=== PATIENT | male | born 1970 | race African-American/Black ===

== ENCOUNTER 2019-03-24 13:46 | Outpatient (CLI) | payer BC ==
--- NOTE | 2019-03-24 15:20 | ULT ---
ULTRASOUND VENOUS MAPPING FOR DIALYSIS ACCESS: HISTORY: ESRD. Dialysis access evaluation. FINDINGS: RIGHT CEPHALIC VEIN: Proximal humerus 1.3 mm Mid humerus 0.7 mm Distal too small to visualize Elbow too small to visualize Proximal forearm too small to visualize Mid too small to visualize Distal too small to visualize RIGHT BASILIC VEIN: Proximal humerus 4.4 mm Mid humerus 1.8 mm Distal 2.2 mm Elbow 1.1 mm Proximal forearm 0.7 mm Mid 0.9 mm Distal 0.8 mm RIGHT: BRACHIAL ARTERY 4.2 mm RRADIAL ARTERY 2.4 mm ULNAR ARTERY 1.7 mm LEFT CEPHALIC VEIN: Proximal humerus not seen Mid humerus 0.7 mm Distal 0.6 mm Elbow 0.9 mm Proximal forearm 0.5 mm Mid 0.8 mm Distal 0.6 mm LEFT BASILIC VEIN: Proximal humerus 2.7 mm Mid humerus 2.2 mm Distal 1.2 mm Elbow 0.6 mm Proximal forearm 0.7 mm Mid 0.5 mm Distal not seen LEFT BRACHIAL ARTERY 3.5 mm RADIAL ARTERY 2.5 mm ULNAR ARTERY 1.8 mm POS: [facility]
== END 2019-03-24 13:47 | disposition home or self-care (01) ==
LOC: BICULT 13:46
PROVIDERS: ATTEND Internal Medicine Nephrology
DX: N18.5 Chronic kidney disease, stage 5 (principal)
CPT/HCPCS: 93970; G0365

== ENCOUNTER 2019-04-07 10:36 | Day surgery (SDC) | payer BC ==
[2019-04-06 09:47] VITALS: BMI 33.6
--- NOTE | 2019-04-07 08:03 | HP ---
HISTORY OF PRESENT ILLNESS: Ovi Malone is a 48-year-old black male, retired. 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 He is followed by Dr. Lee. He has hypertensive nephropathy as well as diabetes. He is on cholesterol medications. He has been seen by Dr. Lee. Ultrasound vein mapping obtained reveals occlusion of the right upper arm cephalic vein and superior left arm veins. Right arm cephalic vein is 1.3/0.7 mm and too small to visualize distally. Left arm reveals . Mid humerus 0.7, 0.6; elbow 0.9; proximal forearm 0.5 mm; basilic 2.7, 2.2, 1.2; . Plan is for a left arm fistula, possible graft. He does not want peritoneal dialysis. He has relatives who have been on dialysis. HABITS: Tobacco, rarely. Alcohol rarely. MEDICATIONS: 1. Hydralazine 25 mg t.i.d. 2. Amlodipine 2 mg a day. 3. Metoprolol 100 mg a day. 4. NovoLog 70/30, 15 to 30 units subcu b.i.d. 5. Propylthiouracil 50 mg a day. 6. Rosuvastatin 10 mg at bedtime. 7. Insulin as directed. 8. Vitamin D daily. PAST SURGICAL HISTORY: Open cholecystectomy. PAST MEDICAL HISTORY: Diabetes mellitus, insulin-dependent and hypertension. REVIEW OF SYSTEMS: Ten-point noncontributory. PHYSICAL EXAMINATION: VITAL SIGNS: Weight 218 pounds, height 69 inches, blood pressure 178/92, heart rate 76, temperature 98.5 degrees. HEAD, EYES, EARS, NOSE, AND THROAT: Unremarkable. LUNGS: Clear to auscultation. CARDIAC: Rhythm without murmur or gallop. ABDOMEN: Soft, nontender. Open cholecystectomy scar, right upper quadrant. No hernias evident. EXTREMITIES: Unremarkable. Palpable radial pulses. No visibly demonstrable veins in either arm. ASSESSMENT/PLAN: 1. Poor veins, right arm. Plan left arm fistula, possible graft. He understands risks and benefits and consents. Plan is under IV sedation regional versus general per anesthesia choice. 2. Diabetes mellitus. 3. Hypertension. 4. Elevated cholesterol. Job ID: [id number]
[2019-04-07 12:30] LABS: #Basophils 0.1 thou/uL (0.0-0.2); #Eosinphils 0.2 thou/uL (0.0-0.7); #Lymphocytes 2.3 thou/uL (1.20-3.40); #Monocytes 0.6 thou/uL (0.11-0.59); #Neutrophils 2.1 thou/uL (1.40-6.50); %Basophils 1.7 % (0.0-1.0); %Eosinophils 3.9 % (0.0-10.0); %Lymphocytes 42.9 % (21.0-51.0); %Monocytes 11.3 % (0.0-10.0); %Neutrophils 40.3 % (42.0-75.0); Hemoglobin 11.3 g/dL (14.0-18.0); Mean Corpuscular HGB CONC 32.9 g/dL (32.0-36.0); Mean Corpuscular Hemoglobin 27.2 pg (27.0-31.0); Mean Corpuscular Volume 82.6 fL (78.0-98.0); Mean Platelet Volume 9.8 fL (7.4-10.4); Platelet Count 287 thou/uL (130-400); RBC Distribution Width 11.4 % (11.5-14.5); Red Blood Cell (RBC) Count 4.17 mill/uL (4.70-6.10); White Blood Cell (WBC) Count 5.3 thou/uL (4.8-10.8)
[2019-04-07 12:46] LABS: Anion Gap 13 mmol/L (10-20); BUN (Urea Nitrogen) 45 mg/dL (8.9-20.6); Calc. Creatinine Clearance 23 mL/min (70-130); Calcium 8.8 mg/dL (7.8-10.44); Carbon Dioxide 20 mmol/L (22-29); Chloride 108 mmol/L (98-107); Estimated GFR-MDRD 13; Glucose 135 mg/dL (70-105); Potassium 4.9 mmol/L (3.5-5.1); Sodium 136 mmol/L (136-145)
[2019-04-07] MEDS ORDERED: Propofol 500 MG/50 ML VIAL ONE (13:02)
[2019-04-07] MEDS ORDERED: Fentanyl 100 MCG/2 ML VIAL ONE ×2 (13:02→13:52)
[2019-04-07] MEDS ORDERED: Midazolam HCl 2 mg/2 ml Vial ONE (13:51)
[2019-04-07] MEDS ORDERED: Dextrose 50% Abboject 50 ML SYRINGE ONE ×2 (13:53→16:12)
[2019-04-07] MEDS ORDERED: Lidocaine 2% PF 5 ML VIAL ONE (14:16)
[2019-04-07] MEDS ORDERED: Protamine Sulfate 50 MG/5 ML VIAL ONE (14:16)
[2019-04-07] MEDS ORDERED: Bupivacaine HCl 0.5%/Epinephrine 1:200,000/PF 30 ml Vial ONE (14:16)
[2019-04-07] MEDS ORDERED: Heparin 5,000 UNITS/ML VIAL ONE (14:16)
[2019-04-07] MEDS ORDERED: Ioversol 68 % 50 ML VIAL ONE (14:16)
--- NOTE | 2019-04-07 23:04 | OP ---
DATE OF PROCEDURE: 04/07/2019 PREOPERATIVE DIAGNOSIS: Chronic kidney disease, not yet started dialysis, pending dialysis access. POSTOPERATIVE DIAGNOSIS: Chronic kidney disease, not yet started dialysis, pending dialysis access. PROCEDURES PERFORMED: Left arm primary AV fistula Marian type 4 mm coronary artery dilator. Good quality radial artery, excellent caliber cephalic vein. ANESTHESIA: Regional, TIVA. ESTIMATED BLOOD LOSS: 20 mL. Note, the patient presented after taking an oatmeal with light corn despite n.p.o. instructions and surgery delayed until 2:30 to 2:45 p.m. DESCRIPTION OF PROCEDURE: The patient was taken to the operating room, where under regional anesthesia, left upper extremity was prepared with ChloraPrep and draped in routine fashion. Incision was made between the radial artery and cephalic vein longitudinally, carried down to skin and subcutaneous tissue. Radial artery and cephalic vein dissected free dividing branches of the cephalic vein between clips and 4-0 silk ties and dividing the hand side of the cephalic vein with 4-0 silk ties and divided. The patient given 6000 units of heparin intravenously. Vein spatulated and interrogated with coronary dilators, passing coronary dilators from 2 mm to 4 mm coronary dilator, unobstructed out the outflow. Radial artery dissected free and controlled proximally with vascular clamps and a longitudinal arteriotomy was made sharply, elongated with Braga scissors for 2.5 cm anastomosis between the side radial artery and the cephalic vein. Good hemostasis noted after completing the anastomosis with 6-0 Prolene. Vascular clamps were released. Good Doppler signal in the outflow. A counter incision made over the larger branch point, which was ligated with 4-0 silk ties. All incisions closed by approximating subcutaneous tissue with 3-0 Monocryl, skin with subdermal 4-[address] [place] glue applied. Job ID: [id number]
--- NOTE | 2019-04-08 09:20 | EKG ---
Test Reason : PREOP Blood Pressure : / mmHG Vent. Rate : 072 BPM Atrial Rate : 072 BPM P-R Int : 158 ms QRS Dur : 090 ms QT Int : 378 ms P-R-T Axes : 056 017 038 degrees QTc Int : 413 ms Normal sinus rhythm Normal ECG No previous ECGs available Confirmed by FRANCISCA POLLOCK, DR. Yin ([id number]) on 04/08/2019 9:20:48 AM Referred By: WILLIS Confirmed By:DR. Humphrey ESPINOSA MD
== END 2019-04-07 17:25 | disposition home or self-care (01) ==
LOC: SDC 10:36
PROVIDERS: ATTEND Specialist
PROC: 031C0ZF Bypass Left Radial Artery to Lower Arm Vein, Open Approach (ICD-10-PCS; principal; 2019-04-07)
DX: I12.0 Hypertensive chronic kidney disease with stage 5 chronic kidney disease or end stage renal disease (principal); E11.22 Type 2 diabetes mellitus with diabetic chronic kidney disease; N18.6 End stage renal disease; F17.200 Nicotine dependence, unspecified, uncomplicated; E78.5 Hyperlipidemia, unspecified; E11.21 Type 2 diabetes mellitus with diabetic nephropathy; E78.00 Pure hypercholesterolemia, unspecified; E66.9 Obesity, unspecified; Z68.33 Body mass index [BMI] 33.0-33.9, adult; Z79.4 Long term (current) use of insulin; Z79.899 Other long term (current) drug therapy
CPT/HCPCS: 36416; 80048; 85025; 93005; 93010; J0670; J0690; J1644; J2001; J2250; J2704; J2720; J3010; Q9967

== ENCOUNTER 2019-05-30 12:18 | Outpatient (CLI) | payer BC ==
--- NOTE | 2019-05-30 12:58 | RAD ---
EXAM: Chest PA and lateral: HISTORY: Chronic kidney disease. Eval for TB. COMPARISON: 06/05/2006 FINDINGS: Heart: Normal cardiac silhouette Aorta: Unremarkable Pulmonary vessels: Normal Costophrenic angles: Blunting of the right costophrenic angle. Lungs: Atelectasis, aspiration or pneumonia in the right lung base. Calcified granuloma in the right upper lobe. Pneumothorax: No pneumothorax Osseous structures: No osseous abnormalities IMPRESSION: : Parenchymal and pleural changes in the right lung base. Continued surveillance to ensure resolution .
== END 2019-05-30 12:19 | disposition home or self-care (01) ==
LOC: BICRAD 12:18
PROVIDERS: ATTEND Internal Medicine Nephrology
DX: N18.5 Chronic kidney disease, stage 5 (principal)
CPT/HCPCS: 71046

== ENCOUNTER 2019-07-26 12:51 | Day surgery (SDC) | payer BC ==
[2019-07-25 12:21] VITALS: BMI 29.5
--- NOTE | 2019-07-25 15:16 | HP ---
HISTORY OF PRESENT ILLNESS: Oiv Malone is a 48-year-old male patient followup after left Marian fistula on 04/07/2019. He is using this for dialysis. He is not having hemodialysis catheter and has never had. He dialyzes at [facility] in [place] on Wednesday, , and Wednesday. He has insisted in peritoneal dialysis. He has talked to the dialysis center about that, but has not visited with the dialysis nurse. Plan is for laparoscopic peritoneal dialysis catheter as an outpatient. He will see the peritoneal dialysis nurse prior and follow up with her 3 to 7 days postoperatively for dressing changes and begin instructions. MEDICATIONS: 1. Amlodipine. 2. Chlorthalidone. 3. Glucophage. 4. Metoprolol. 5. Hydralazine. He has stopped his insulin since starting dialysis. PAST MEDICAL HISTORY: Diabetes mellitus, hyperlipidemia, hypothyroidism, and end-stage renal disease on maintenance dialysis. PAST SURGICAL HISTORY: Left AVF on 04/07/2019, Marian fistula. ALLERGIES: NONE. SOCIAL HISTORY: Tobacco, none. Alcohol, none. PHYSICAL EXAMINATION: VITAL SIGNS: Weight 211 pounds, 69 inches. Blood pressure 185/103, pulse 106, temperature 96.6 degrees. HEAD, EARS, EYES, NOSE AND THROAT: Unremarkable. LUNGS: Clear to auscultation. CARDIAC: Regular rate and rhythm without murmur or gallop. ABDOMEN: Soft and nontender. No umbilical hernia. No groin hernias. EXTREMITIES: Good thrill and bruit in his left arm fistula, Marian. Good hand function. ASSESSMENT AND PLAN: End-stage renal disease. PLAN: Laparoscopic PD catheter as outpatient risks, benefits, and consents. Job ID: [id number]
[2019-07-26 14:17] LABS: Hemoglobin 12.3 g/dL (14.0-18.0); Mean Corpuscular HGB CONC 32.6 g/dL (32.0-36.0); Mean Corpuscular Hemoglobin 28.2 pg (27.0-31.0); Mean Corpuscular Volume 86.6 fL (78.0-98.0); Mean Platelet Volume 8.9 fL (7.4-10.4); Platelet Count 324 thou/uL (130-400); RBC Distribution Width 13.4 % (11.5-14.5); Red Blood Cell (RBC) Count 4.37 mill/uL (4.70-6.10); White Blood Cell (WBC) Count 8.2 thou/uL (4.8-10.8)
[2019-07-26 14:33] LABS: Anion Gap 18 mmol/L (10-20); BUN (Urea Nitrogen) 20 mg/dL (8.9-20.6); Calc. Creatinine Clearance 19 mL/min (70-130); Calcium 9.2 mg/dL (7.8-10.44); Carbon Dioxide 24 mmol/L (22-29); Chloride 94 mmol/L (98-107); Estimated GFR-MDRD 12; Glucose 291 mg/dL (70-105); Potassium 4.1 mmol/L (3.5-5.1); Sodium 132 mmol/L (136-145)
[2019-07-26 14:42] LABS: Band 7 % (5-11); Eosinophils 1 % (0-10); Lymphocytes 14 % (21-51); MDiff Complete? YES; Monocytes 12 % (0-10); Neutrophil 64 % (42-75); Platelet Morphology Comment Appears Adequate; Polychromasia SLIGHT = 2-3 cells (100X) (0-2/hpf)
[2019-07-26] MEDS ORDERED: Bupivacaine HCl 0.5%/Epinephrine 1:200,000/PF 30 ml Vial ONE (15:49)
[2019-07-26] MEDS ORDERED: Lidocaine 2% PF 5 ML VIAL ONE (15:49)
[2019-07-26] MEDS ORDERED: Heparin 10,000 UNITS/1 ML VIAL ONE (15:49)
[2019-07-26] MEDS ORDERED: PROPOFOL 0 ML ONE (15:56)
[2019-07-26] MEDS ORDERED: Fentanyl 100 MCG/2 ML VIAL ONE ×3 (15:56→17:19)
[2019-07-26] MEDS ORDERED: SUGAMMADEX SODIUM 200 MG/2 ML VIAL ONE (16:56)
[2019-07-26] MEDS ORDERED: Labetalol HCl 100 MG/20 ML VIAL ONE (17:12)
[2019-07-26] MEDS ORDERED: HYDROcodone/Acetaminophen 5/325 mg Tablet ONE (19:39)
--- NOTE | 2019-07-27 00:12 | OP ---
DATE OF PROCEDURE: 07/26/2019 PREOPERATIVE DIAGNOSIS: End-stage renal disease, desires peritoneal dialysis. POSTOPERATIVE DIAGNOSIS: End-stage renal disease, desires peritoneal dialysis. PROCEDURES PERFORMED: Laparoscopic peritoneal dialysis catheter, double-cuffed pigtail. Laparoscopic omentopexy. ANESTHESIA: General, local 0.5% Marcaine with epinephrine 30 mL mixed with 2% Xylocaine 10 mL, total volume used. DESCRIPTION OF PROCEDURE: The patient was taken to the operating room. Under general anesthesia, abdomen was clipped of hair, prepared with ChloraPrep, and draped in routine fashion. Bilateral subcostal far lateral incision made, and 5-mm port placed after pneumoperitoneum to 15 mmHg established with Veress needle. A stab incision was made in the left lower quadrant at the planned peritoneal dialysis catheter exit site and a counter incision was made periumbilical left and an 8 mm port was placed through this incision directed caudally in the subcutaneous tissue into the rectus sheath visualized laparoscopically penetrating the abdominal cavity in the inferior suprapubic area. A double-cuffed pigtail catheter was then inserted, and internal cuff was placed in the rectus sheath and port removed. A [place] dissector was placed through the planned exit site to the counterincision, grasping the PD catheter and pulled it into the exit site with external cuff beneath the skin exit site. Subcutaneous tissue was approximated with 3-0 Monocryl, skin with subdermal 4-0 Monocryl, and [place] glue applied. Peritoneal dialysis catheter was flushed with heparinized saline solution and capped secured and sterile dressings applied. Omentopexy was then performed with a transabdominal wall fixation suture of 2-0 Vicryl. Once this was placed, omentum was pexed to the abdominal wall. Good hemostasis was noted. Pneumoperitoneum was reduced. All instruments were removed, and all skin incisions were approximated with interrupted subdermal 4-0 Monocryl and [place] glue applied. Job ID: [id number]
== END 2019-07-26 20:20 | disposition home or self-care (01) ==
LOC: SDC 12:51
PROVIDERS: ATTEND Specialist
PROC: 0JH83XZ Insertion of Tunneled Vascular Access Device into Abdomen Subcutaneous Tissue and Fascia, Percutaneous Approach (ICD-10-PCS; principal; 2019-07-26)
DX: E11.22 Type 2 diabetes mellitus with diabetic chronic kidney disease (principal); N18.6 End stage renal disease; E78.5 Hyperlipidemia, unspecified; E03.9 Hypothyroidism, unspecified; Z99.2 Dependence on renal dialysis
CPT/HCPCS: 80048; 85025; J0131; J0670; J0690; J1644; J2001; J2704; J3010

== ENCOUNTER 2020-08-12 00:56 | Emergency (ER) | payer BC, MEDICARE, OTHER ==
[2020-08-12 01:42] LABS: Hemoglobin 12.4 g/dL (14.0-18.0); Mean Corpuscular HGB CONC 32.1 g/dL (32.0-36.0); Mean Corpuscular Hemoglobin 28.4 pg (27.0-31.0); Mean Corpuscular Volume 88.5 fL (78.0-98.0); Mean Platelet Volume 8.3 fL (7.4-10.4); Platelet Count 354 thou/uL (130-400); RBC Distribution Width 13.3 % (11.5-14.5); Red Blood Cell (RBC) Count 4.35 mill/uL (4.70-6.10)
[2020-08-12 01:59] LABS: ALT (SGPT) 43 U/L (8-55); AST (SGOT) 45 U/L (5-34); Alkaline Phosphatase 131 U/L (40-110); Anion Gap 21 mmol/L (10-20); BUN (Urea Nitrogen) 67 mg/dL (8.9-20.6); Bilirubin, Total 0.3 mg/dL (0.2-1.2); Calc. Creatinine Clearance 0 mL/min (70-130); Calcium 8.7 mg/dL (7.8-10.44); Carbon Dioxide 27 mmol/L (22-29); Chloride 93 mmol/L (98-107); Estimated GFR-MDRD 6; Globulin 3.8 g/dL (2.4-3.5); Glucose 378 mg/dL (70-105); Lipase 11 U/L (8-78); Magnesium 2.4 mg/dL (1.6-2.6); Potassium 4.2 mmol/L (3.5-5.1); Protein, Total 6.8 g/dL (6.0-8.3); Sodium 137 mmol/L (136-145)
[2020-08-12 02:06] LABS: Band 8 % (5-11); Lymphocytes 9 % (21-51); MDiff Complete? YES; Monocytes 10 % (0-10); Neutrophil 73 % (42-75)
[2020-08-12 02:25] LABS: CKMB 7.8 ng/mL (0-6.6)
[2020-08-12 02:37] LABS: SARS-CoV-2 NAA Rapid Test Not Detected (NotDetected)
--- NOTE | 2020-08-12 07:49 | RAD ---
RADIOGRAPH CHEST 1 VIEW: DATE: 08/12/2020 1:28 AM HISTORY: 49-year-old male with dyspnea FINDINGS: Suboptimal, lordotic positioning. There are no consolidations, pulmonary edema, pneumothorax, or card iomegaly. The lateral costophrenic angles are sharp. Small, faint, subtle foci of nodular interstitial densities are noted at the bilateral lower lung zon es, one on each side. They are favored to represent artifact. IMPRESSION: 1. No convincing evidence of acute cardiopulmonary disease. 2. If symptoms persist, follow-up PA and lateral views recommended in 1-3 days.
== END 2020-08-12 02:20 ==
LOC: ERS 00:56
DX: I12.0 Hypertensive chronic kidney disease with stage 5 chronic kidney disease or end stage renal disease (principal); N18.6 End stage renal disease; R09.81 Nasal congestion; Z20.828 Contact with and (suspected) exposure to other viral communicable diseases; E78.5 Hyperlipidemia, unspecified; Z99.2 Dependence on renal dialysis; Z86.73 Personal history of transient ischemic attack (TIA), and cerebral infarction without residual deficits; Z79.899 Other long term (current) drug therapy; Z79.82 Long term (current) use of aspirin; Z79.4 Long term (current) use of insulin
CPT/HCPCS: 71045; 80053; 82553; 83605; 83690; 83735; 84484; 85025; 87040; 93005; 94640; U0002; J7620

== ENCOUNTER 2020-08-25 14:30 | Inpatient (IN) | payer MEDICARE, OTHER ==
[2020-08-25 15:34] LABS: #Basophils 0.1 thou/uL (0.0-0.2); #Eosinphils 0.2 thou/uL (0.0-0.7); #Lymphocytes 1.3 thou/uL (1.20-3.40); #Monocytes 0.5 thou/uL (0.11-0.59); #Neutrophils 3.6 thou/uL (1.40-6.50); %Basophils 1.2 % (0.0-1.0); %Eosinophils 3.4 % (0.0-10.0); %Lymphocytes 22.6 % (21.0-51.0); %Monocytes 8.8 % (0.0-10.0); %Neutrophils 64.1 % (42.0-75.0); Hemoglobin 6.9 g/dL (14.0-18.0); Mean Corpuscular HGB CONC 32.1 g/dL (32.0-36.0); Mean Corpuscular Hemoglobin 28.8 pg (27.0-31.0); Mean Corpuscular Volume 89.6 fL (78.0-98.0); Mean Platelet Volume 8.3 fL (7.4-10.4); Platelet Count 251 thou/uL (130-400); RBC Distribution Width 14.2 % (11.5-14.5); Red Blood Cell (RBC) Count 2.39 mill/uL (4.70-6.10); White Blood Cell (WBC) Count 5.6 thou/uL (4.8-10.8)
[2020-08-25 15:40] LABS: Prothrombin Time 13.5 sec (12.0-14.7)
[2020-08-25 15:54] LABS: ALT (SGPT) 70 U/L (8-55); AST (SGOT) 59 U/L (5-34); Albumin 2.1 g/dL (3.5-5.0); Alkaline Phosphatase 73 U/L (40-110); Anion Gap 20 mmol/L (10-20); BUN (Urea Nitrogen) 87 mg/dL (8.9-20.6); Bilirubin, Total 0.4 mg/dL (0.2-1.2); Calc. Creatinine Clearance 0 mL/min (70-130); Carbon Dioxide 26 mmol/L (22-29); Chloride 97 mmol/L (98-107); Estimated GFR-MDRD 4; Globulin 2.1 g/dL (2.4-3.5); Glucose 183 mg/dL (70-105); Potassium 5.5 mmol/L (3.5-5.1); Protein, Total 4.2 g/dL (6.0-8.3); Sodium 137 mmol/L (136-145)
[2020-08-25] MEDS ORDERED: Acetaminophen 325 MG TAB PO PRN (16:58)
[2020-08-25] MEDS ORDERED: Acetaminophen 650 MG Suppository PR PRN (17:04)
[2020-08-25] MEDS ORDERED: HumaLOG 300 UNITS/3 ML VIAL SC PRN ×2 (17:22)
[2020-08-25] MEDS ORDERED: Dextrose 5% in Water 1,000 ML IV PRN (17:22)
[2020-08-25] MEDS ORDERED: Dextrose 50% Abboject 50 ML SYRINGE SLOW IVP PRN (17:22)
[2020-08-25] MEDS ORDERED: Pantoprazole 40 MG VIAL ONE (17:38)
--- NOTE | 2020-08-25 19:20 | CON ---
DATE OF CONSULTATION: 08/25/2020 CHIEF COMPLAINT: Vomited blood. HISTORY OF PRESENT ILLNESS: Mr. Malone is a 49-year-old man with a history of end-stage renal disease, on peritoneal dialysis, who was recently discharged from [facility] to rehab following a stroke with residual right-sided weakness. [facility], he was noted to have three episodes of bloody emesis. He also passed a dark blackish red stool. He no longer feels nauseated. He has no abdominal pain currently. He has not had known diarrhea or constipation preceding this. His mental status is a little slow now. There could be some deficits in his history that he has given me. PAST MEDICAL HISTORY: Stroke; end-stage renal disease, on peritoneal dialysis; hypertension; hyperlipidemia, diabetes mellitus. FAMILY HISTORY: Negative for GI malignancy. SOCIAL HISTORY: He has been a smoker, half pack a day previously. No drugs. No alcohol. ALLERGIES: NO KNOWN DRUG ALLERGIES. MEDICATIONS: At the jail before admission; 1. Amlodipine. 2. Aspirin. 3. Lisinopril. 4. Minoxidil. 5. Calcium with vitamin D. 6. Atorvastatin. 7. Pantoprazole. 8. Carvedilol. 9. Clonidine. 10. Vitamin D. 11. Trazodone. 12. Simethicone. 13. Insulin. 14. Polyethylene glycol once daily. REVIEW OF SYSTEMS: Negative x10 systems reviewed except as stated in the history of present illness. PHYSICAL EXAMINATION: VITAL SIGNS: Blood pressure 119/22, pulse 79, temperature 97.7. GENERAL: He is in no acute distress. He is oriented, but slow to answer questions as he is diaphoretic. HEENT: His eyes have no scleral icterus. Oropharynx is clear without lesions. No cervical or supraclavicular lymphadenopathy. LUNGS: Clear to auscultation bilaterally. HEART: Regular rate and rhythm without murmur. ABDOMEN: Soft, nontender, and nondistended. Bowel sounds are present. EXTREMITIES: No lower extremity edema. He has a dialysis shunt in his left arm, but this is not being used. He has a peritoneal dialysis catheter. RECTAL: Reveals scant black stool in the rectal vault. LABORATORY DATA: White blood cell count 5.6, hemoglobin is 6.9 down from 9.9 five days ago, which was down from 12.4 back on 08/12/2020, platelets 251. White blood cell count 5.6. INR 1.0. Creatinine 15.64, BUN 87, potassium 5.5, bilirubin 0.4, AST 59, ALT 70, alkaline phosphatase 73, albumin 2.1. IMPRESSION: 1. Upper gastrointestinal bleed presenting with hematemesis at the jail and then one melenic stool. He has not had further melena here in the ER and he has had no further vomiting since he has been in the emergency room. Rectal exam only reveals a scant amount of blood there now. 2. Recent stroke. 3. End-stage renal disease, on peritoneal dialysis. His creatinine is increased and his BUN is increased. His potassium is a little high. Nephrology has been consulted as well. RECOMMENDATIONS: 1. He is receiving blood transfusion now. 2. Pantoprazole IV. 3. We will plan for EGD tomorrow. 4. Check COVID test pre-procedure, however, if he has further signs of overt bleeding, then we might just need to proceed more urgently. Job ID: [id number]
--- NOTE | 2020-08-25 19:26 | HP ---
PRIMARY CARE PHYSICIAN: Dr. Koch. CHIEF COMPLAINT: Vomiting with bloody diarrhea. HISTORY OF PRESENT ILLNESS: Mr. Malone is a 49-year-old man who reported to the emergency room today via ambulance from the [facility]. reports that he has been there for about the past 2 weeks after suffering a CVA with right-sided deficits on July 30, 2020. He was at the [facility] for a couple of weeks and then from there, he went to the [facility] for rehab. reports that he was in his normal state of health yesterday and then she was called this morning saying that he had some vomiting with some weakness this morning and then bloody stool with clots and they sent him to be evaluated at [facility] in [place]. Past medical history is pertinent for CVA this year. He has had a history of septic shock, cardiac history, hyperlipidemia, hypertension, end-stage renal disease, and some dysphagia. He is on peritoneal dialysis. Dr. Lee takes care of this for him. said that he has been on that for about 14 months. In the emergency room today, his workup demonstrated a potassium of 5.5, chloride 97, BUN 87, creatinine is 15.64, estimated GFR is 4, glucose 183, albumin 2.1, globulin 2.1, alkaline phosphatase 73, AST is 59, ALT is 70. INR is 1, PTT is 13.5. He did have a positive fecal occult blood. White blood cell count is 5.6, hemoglobin is 6.9, hematocrit is 21.4, and platelet count is 251. He was type and screen for 2 units of packed red blood cells. They started 1 unit transfusing in the emergency room. He will be admitted to the telemetry unit for further management. The patient reports fatigue. Denies fever. Denies any upper respiratory symptoms. Denies any chest pain. Denies cough or shortness of breath. He does report some nausea, vomiting, and hematochezia. All systems are reviewed and are negative unless mentioned in the HPI or above. PAST MEDICAL HISTORY: Please see the HPI. Diabetes. PAST SURGICAL HISTORY: Had peritoneal dialysis port placed, and an I and D of left foot. SOCIAL HISTORY: Currently, he lives in a long-term care facility [facility]. ALLERGIES: NONE. CURRENT MEDICATIONS: 1. Amlodipine 10 mg p.o. once a day. 2. Aspirin 81 mg p.o. once a day. 3. Lisinopril 20 mg once a day. 4. Minoxidil 5 mg p.o. once a day at bedtime. 5. Calcium 2 times a day with meals. 6. Atorvastatin 40 mg p.o. once a day at bedtime. 7. Protonix 40 mg p.o. once a day. 8. Vitamin D3 of 400 units once a day. 9. Coreg 25 mg p.o. b.i.d. 10. Clonidine 0.2 mg transdermal daily. 11. Clonidine 0.1 p.o. q.6 hours. 12. Loperamide 2 mg p.o. as needed. 13. Simethicone 80 mg p.o. t.i.d. 14. Trazodone 50 mg p.o. once a day at bedtime. 15. Hydralazine 50 mg p.o. t.i.d. 16. Levemir 24 units subcutaneously once a day at bedtime. 17. MiraLAX 17 g once a day. 18. Humulin R sliding scale. PHYSICAL EXAMINATION: VITAL SIGNS: Blood pressure 134/82, pulse is 78, respiratory rate is 18, temperature is 98.2, O2 saturations are 99% on room air. CONSTITUTIONAL: The patient is a little diaphoretic. He is ill-appearing but nontoxic. HEENT: Head is atraumatic and normocephalic. Eyes; extraocular muscles are intact. ENT; mucous membranes are moist. Mouth exam is normal. NECK: Trachea is midline. No JVD is noted. RESPIRATORY/CHEST: Breath sounds are clear. Chest expansion is equal. CARDIOVASCULAR: Regular rate and rhythm. Heart sounds are normal. ABDOMEN: There is no tenderness. No distention. Bowel sounds are heard. EXTREMITIES: Upper extremity, normal range of motion. He does have a fistula on the left lower arm with good bruit. Lower extremity, normal range of motion. Pulses are normal. NEUROLOGIC: He does have some right-sided weakness comparable to the left from a prior stroke. PSYCHIATRIC: He is oriented to person, place, and time. PLAN AND ASSESSMENT: 1. Gastrointestinal bleed. We are going to keep the patient n.p.o. We have asked Dr. Malone to consult iron studies once the 1 unit of packed red blood cells have been infused. We will recheck hemoglobin and hematocrit at 11 o'clock tonight. We will continue his Protonix. We will increase it to b.i.d. 2. History of end-stage renal disease, peritoneal dialysis. His potassium is 5.5. We have informed Dr. Lee. The patient will be admitted and that he will need peritoneal dialysis. 3. History of diabetes. We will hold Levemir for now just because he is n.p.o. Add sliding scale coverage as needed and we will restart his Levemir once his gastrointestinal bleeding has been resolved. 4. History of hypertension. We will restart his home medications once verified. 5. Previous cerebrovascular accident with right-sided weakness. We have placed a request to have the records from [facility] from the last cerebrovascular accident admission sent to us. 6. SCDs for deep venous thrombosis prophylaxis. Protonix for peptic ulcer disease prophylaxis. 7. Case discussed with Dr. Colin who agrees with plan. 8. Hospital course dependent on clinical findings. Job ID: [id number]
[2020-08-25] MEDS: Pantoprazole 40 MG VIAL IVP SCH (21:53)
[2020-08-25 22:22] VITALS: BMI 28.1
[2020-08-25 23:28] LABS: Hemoglobin 6.3 g/dL (14.0-18.0)
[2020-08-26 07:28] LABS: SARS-CoV-2 NAA Rapid Test Not Detected (NotDetected)
[2020-08-26] MEDS: Pantoprazole 40 MG VIAL IVP SCH ×2 (08:37→20:29)
--- NOTE | 2020-08-26 08:42 | PRG ---
DATE OF SERVICE: 08/26/2020 SUBJECTIVE: Mr. Malone is a 49-year-old black male with ESRD on peritoneal dialysis. He was at the rehab. He was noted to have passed blood per rectum. His hemoglobin was noted to have dropped down to a value of 6.9 from a previous 9.9. He did receive 2 units of packed RBC. We are following up this patient for his maintenance peritoneal dialysis. He did undergo peritoneal dialysis without any difficulty last night. The patient voices no new complaints. He denies any chest pain or shortness of breath. OBJECTIVE: VITAL SIGNS: Blood pressure 102/46, respiratory rate 15, temperature 98.2, O2 saturation 95%. GENERAL: The patient is awake, alert, comfortable, not in overt distress. SKIN: Adequate turgor. HEENT: Pale conjunctivae. Anicteric sclerae. NECK: No neck mass. No carotid bruits. No JVD. CHEST: No deformities. LUNGS: Clear breath sounds. No wheezing. No crackles. HEART: Normal sinus rhythm. No murmur. No gallops. No rubs. ABDOMEN: Globular, soft, nontender. No masses. Positive for PD catheter. EXTREMITIES: Trace edema. MEDICATIONS: On August 26, 2020, were reviewed. LABORATORY DATA: On August 25, 2020; hemoglobin 6.3. Sodium 137, potassium 5.5, chloride 97, carbon dioxide 26, BUN 87, creatinine 15.64, AST 59, ALT 70, albumin 2.1. On August 26, 2020; glucose 332. ASSESSMENT AND PLAN: 1. End-stage renal disease, stable. We will continue current continuous cyclic peritoneal dialysis regimen. He is currently on 2.5% PD solution using a 2 L fill volume. 2. Anemia/gastrointestinal bleed. P.r.n. blood transfusion. Resume Epogen. GI consult. Recheck CBC and basic metabolic in a.m. Job ID: [id number] [facility]
[2020-08-26] MEDS ORDERED: EPOETIN ALFA-EPBX (ESRD) 4,000 UNIT/ML VIAL SC SCH (09:00)
[2020-08-26] MEDS ORDERED: PROPOFOL 200 MG/20 ML VIAL ONE (09:33)
[2020-08-26] MEDS ORDERED: PHENYLEPHRINE-NS 100 MCG/ML 10 ML SYRINGE ONE (09:33)
[2020-08-26] MEDS ORDERED: EPHEDRINE 25 MG/5 ML SYRINGE ONE (09:33)
[2020-08-26 10:10] LABS: #Basophils 0.1 thou/uL (0.0-0.2); #Eosinphils 0.2 thou/uL (0.0-0.7); #Lymphocytes 1.8 thou/uL (1.20-3.40); #Monocytes 0.8 thou/uL (0.11-0.59); #Neutrophils 7.5 thou/uL (1.40-6.50); %Basophils 0.9 % (0.0-1.0); %Eosinophils 1.7 % (0.0-10.0); %Lymphocytes 17.5 % (21.0-51.0); %Monocytes 7.6 % (0.0-10.0); %Neutrophils 72.4 % (42.0-75.0); Hemoglobin 7.9 g/dL (14.0-18.0); Mean Corpuscular HGB CONC 32.8 g/dL (32.0-36.0); Mean Corpuscular Hemoglobin 29.5 pg (27.0-31.0); Mean Platelet Volume 8.3 fL (7.4-10.4); Platelet Count 207 thou/uL (130-400); RBC Distribution Width 13.9 % (11.5-14.5); Red Blood Cell (RBC) Count 2.69 mill/uL (4.70-6.10); White Blood Cell (WBC) Count 10.3 thou/uL (4.8-10.8)
[2020-08-26] MEDS: Pantoprazole 80 MG in Sodium Chloride 0.9% 100 ML IVPB SCH (10:10)
[2020-08-26 10:33] LABS: Iron 135 ug/dL (65-175); Iron Binding Capacity, Total 160 mcg/dL (261-462)
[2020-08-26 10:35] LABS: ALT (SGPT) 46 U/L (8-55); AST (SGOT) 21 U/L (5-34); Albumin 2.2 g/dL (3.5-5.0); Alkaline Phosphatase 60 U/L (40-110); Anion Gap 20 mmol/L (10-20); BUN (Urea Nitrogen) 88 mg/dL (8.9-20.6); Bilirubin, Total 0.5 mg/dL (0.2-1.2); Calc. Creatinine Clearance 7 mL/min (70-130); Calcium 7.6 mg/dL (7.8-10.44); Carbon Dioxide 26 mmol/L (22-29); Chloride 95 mmol/L (98-107); Estimated GFR-MDRD 4; Globulin 2.3 g/dL (2.4-3.5); Glucose 401 mg/dL (70-105); Iron 139 ug/dL (65-175); Iron Binding Capacity, Total 159 mcg/dL (261-462); Potassium 5.5 mmol/L (3.5-5.1); Protein, Total 4.5 g/dL (6.0-8.3); Sodium 135 mmol/L (136-145)
[2020-08-26] MEDS ORDERED: traZODone HCl 50 MG TAB PO PRN (11:19)
[2020-08-26] MEDS ORDERED: Calcium Carbonate 500 MG ChewTAB PO PRN ×2 (11:19)
[2020-08-26] MEDS ORDERED: Insulin Glargine 20 UNITS in Pre-Filled Syringe 1 EACH SC SCH ×2 (11:30→21:00)
[2020-08-26] MEDS ORDERED: Promethazine HCl 25 MG/ML VIAL SLOW IVP PRN (13:06)
[2020-08-26] MEDS ORDERED: Ondansetron HCl/PF 4 MG/2 ML Vial IVP PRN (13:06)
[2020-08-26] MEDS ORDERED: Promethazine HCl 25 MG/ML VIAL IM PRN (13:06)
[2020-08-26] MEDS ORDERED: HumaLOG 300 UNITS/3 ML VIAL ONE (13:14)
--- NOTE | 2020-08-26 13:20 | OP ---
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 PROCEDURE PERFORMED: Esophagogastroduodenoscopy with biopsies. INDICATIONS: 1. Melena. 2. Hematemesis. 3. [id number] anemia. 4. Recent CVA. MEDICATIONS: See Anesthesia record. FINDINGS: After discussion of the risks, benefits, and alternatives of the procedure, informed consent was obtained and witnessed. Pre-endoscopic cardiopulmonary examination was satisfactory. Time-out was performed before sedation was achieved. Sedation was achieved with Anesthesia assistance in the endoscopy unit. A Pentax adult upper endoscope was placed into the oropharynx and passed through the cricopharyngeus under direct visualization. The esophageal mucosa appeared normal throughout with a normal-appearing Z-line. There was no evidence of any varices or any other mucosal abnormalities in the esophagus or the GE junction. The endoscope was advanced into the stomach. Forward and retroflexed views of the entire gastric mucosa were obtained. There was no evidence of any old blood or active bleeding in the stomach. There were no ulcerations. There was diffuse moderate gastritis in the gastric fundus and antrum, characterized by erythema, friability, and submucosal hemorrhage, particularly in the fundus. The endoscope was passed through the pylorus and into the first and second portions of the duodenum. In the duodenal bulb, there were two clean-based ulcerations, one of these measured about 6-mm in diameter and the other measured over a centimeter in diameter along the superior wall of the duodenal bulb. Both of these ulcerations were clean based with some friability around the edges, but no visible vessel. No old blood or active bleeding demonstrated. I obtained biopsies from the gastric antrum and body to evaluate for H pylori infection. The upper endoscope was then completely withdrawn and the patient allowed to recover. The patient tolerated the procedure well. There were no immediate postprocedure complications. IMPRESSION: 1. Two clean-based duodenal bulb ulcers, nonbleeding, with friability around the edges, but no visible vessel. 2. Nonerosive gastritis, gastric antrum and fundus. Biopsied to rule out Helicobacter pylori infection. 3. Otherwise normal esophagogastroduodenoscopy. RECOMMENDATIONS: 1. Pantoprazole 40 mg IV every 12 hours while inpatient. This should be changed to oral twice daily dosing on hospital discharge. 2. Advance diet. 3. Follow up results of the gastric biopsies. If H pylori is present, treat with triple therapy and confirm eradication. 4. Trend hemoglobin and hematocrit tomorrow. Job ID: [id number]
[2020-08-26] MEDS: hydrALAZINE 25 MG TAB PO SCH ×2 (14:44→20:28)
[2020-08-26] MEDS ORDERED: Calcium Carbonate + Vit D 250 MG TAB PO SCH ×2 (17:00→17:30)
--- NOTE | 2020-08-26 18:43 | PDOC.HOSPP ---
- Subjective Encounter Date: 08/26/20 Subjective: Feels well currently. Did well after his endoscopy today. - Objective Vital Signs & Weight: Vital Signs (12 hours) Temp Pulse Resp BP BP Pulse Ox 08/26/20 15:28 98.1 F 97 16 123/58 L 99 08/26/20 14:44 95 141/63 H 08/26/20 14:02 98.2 F 95 16 122/53 L 97 08/26/20 08:30 98.5 F 92 18 95/49 L 98 Weight Weight 190 lb 0.615 oz Most Recent Monitor Data Heart Rate from ECG 93 NIBP 102/46 I&O: 08/25/20 08/26/20 08/27/20 06:59 06:59 06:59 Intake Total 0 1140 Output Total 125 Balance 0 1015 Result Diagrams: 08/26/20 09:55 08/26/20 09:55 Additional Labs: Accuchecks 08/26/20 08/26/20 08/26/20 17:07 14:43 13:04 POC Glucose 293 H 355 H 414 H 08/26/20 08/26/20 08/25/20 11:31 05:45 20:43 POC Glucose 385 H 332 H 178 H Hospitalist ROS - Medication Medications: Active Medications Generic Name Dose Route Start Last Admin Trade Name Pascale PRN Reason Stop Dose Admin Calcium/Vitamin D 250 mg 08/26/20 17:30 08/26/20 17:32 Calcium Carbonate + Vit D 250 Mg Tab PO 08/26/20 19:30 250 mg NOW MARTHA Administration Epoetin Jose Alberto-epbx 7,500 unit 08/26/20 09:00 08/26/20 08:51 Epoetin Jose Alberto-Epbx (Esrd) 4,000 Unit/Ml Vial SC 7,500 unit Q7D MARTHA Administration Hydralazine HCl 50 mg 08/26/20 15:00 08/26/20 14:44 Hydralazine 25 Mg Tab PO 50 mg TID MARTHA Administration Pantoprazole Sodium 80 mg/ 100 mls @ 10 mls/hr 08/25/20 18:15 08/26/20 10:10 Sodium Chloride IVPB 100 mls INF MARTHA Administration Insulin Human Lispro 0 units 08/25/20 17:22 08/26/20 17:25 Humalog 300 Units/3 Ml Vial SC 4 unit .MILD SLIDING SCALE PRN Administration Mild Correctional Scale Pantoprazole Sodium 40 mg 08/25/20 21:00 08/26/20 08:37 Pantoprazole 40 Mg Vial IVP 40 mg Q12HR MARTHA Administration - Exam General Appearance: NAD, awake alert Heart: RRR, no murmur, no gallops, no rubs, normal peripheral pulses Respiratory: CTAB, no wheezes, no rales, no ronchi, normal chest expansion, no tachypnea, normal percussion Gastrointestinal: soft, non-tender, non-distended, normal bowel sounds, no palpable masses, no hepatomegaly, no splenomegaly, no bruit Extremities: no cyanosis, no clubbing, no edema Skin: normal turgor Neurological - other findings: Left-sided weakness Psychiatric: normal affect, normal behavior, A&O x 3 Hosp A/P (1) GI bleed Code(s): K92.2 - GASTROINTESTINAL HEMORRHAGE, UNSPECIFIED Status: Acute (2) Acute blood loss anemia Code(s): D62 - ACUTE POSTHEMORRHAGIC ANEMIA Status: Acute (3) Gastric ulcer Code(s): K25.9 - GASTRIC ULCER, UNSP ACUTE OR CHRONIC, W/O HEMOR OR PERF Status: Acute (4) History of CVA (cerebrovascular accident) Code(s): Z86.73 - PRSNL HX OF TIA (TIA), AND CEREB INFRC W/O RESID DEFICITS Status: Acute (5) End-stage renal disease on peritoneal dialysis Code(s): N18.6 - END STAGE RENAL DISEASE; Z99.2 - DEPENDENCE ON RENAL DIALYSIS Status: Acute (6) Diabetes mellitus Code(s): E11.9 - TYPE 2 DIABETES MELLITUS WITHOUT COMPLICATIONS Status: Acute (7) Hypertension Code(s): I10 - ESSENTIAL (PRIMARY) HYPERTENSION Status: Acute (8) Anemia in chronic kidney disease Code(s): N18.9 - CHRONIC KIDNEY DISEASE, UNSPECIFIED; D63.1 - ANEMIA IN CHRONIC KIDNEY DISEASE Status: Acute - Plan GI bleed: Secondary to gastric ulcers and resulting in acute blood loss anemia. Gastric ulcers: Continue with PPI as recommended by GI. Acute blood loss anemia: Has been transfused with 2 units packed red blood cells. Will recheck his values in the morning. Does not appear to have evidence of ongoing blood loss. History of CVA: Patient was in rehab. He was apparently supposed to be discharged on the . We will see if he will qualify to go back there after this episode. We will continue with PT in the meantime. Diabetes mellitus: Very high blood sugars throughout the day today. I suspect his insulin was held because he was n.p.o. for his endoscopy. Seems to be settling down some this evening. Should be on his usual home regimen going forward. End-stage renal disease on dialysis: Continue peritoneal dialysis per recommendation of nephrology. Hypertension: Stable on home meds.
[2020-08-26] MEDS: Carvedilol 25 MG TAB PO SCH (20:28)
[2020-08-26] MEDS ORDERED: Minoxidil 2.5 MG TAB PO SCH (21:00)
[2020-08-26] MEDS ORDERED: Atorvastatin Calcium 40 MG TAB PO SCH (21:00)
[2020-08-26] MEDS ORDERED: Non-Formulary Item 1 EACH (Insulin Detemir [Levemir] 100 UNIT/ML Vial) SQ SCH (21:00)
[2020-08-27] MEDS: Pantoprazole 80 MG in Sodium Chloride 0.9% 100 ML IVPB SCH (01:17)
[2020-08-27] MEDS ORDERED: Calcium Carbonate + Vit D 250 MG TAB PO SCH (08:00)
[2020-08-27] MEDS: hydrALAZINE 25 MG TAB PO SCH ×2 (08:35→16:03)
[2020-08-27] MEDS: Pantoprazole 40 MG VIAL IVP SCH (08:36)
[2020-08-27] MEDS: Carvedilol 25 MG TAB PO SCH (08:36)
--- NOTE | 2020-08-27 08:37 | PRG ---
DATE OF SERVICE: 08/27/2020 SERVICE: Renal Medicine. SUBJECTIVE: Mr. Malone is a 49-year-old black male with known history of ESRD, currently on CCPD. He was transferred from rehab due to a GI bleed. He has been given several units of packed RBC. In addition, a GI consult has been done. He underwent upper GI endoscopy with findings of 2 clean based duodenal bulb ulcers that were nonbleeding, but with friability around the edges, but no visible vessel. There was also nonerosive gastritis on the gastric antrum and fundus. Biopsies have been done. The patient's H and H have been stable. The patient also tolerated peritoneal dialysis. We removed about slightly more than a liter of fluid with ultrafiltration. No complaints of chest pain or shortness of breath. He had some hypoglycemic episode early this morning. OBJECTIVE: VITAL SIGNS: Blood pressure is 117/70, heart rate 86, respiratory rate 19, temperature 97.9, O2 saturation 95%. GENERAL: The patient is awake, alert, comfortable, not in distress. SKIN: Adequate turgor. HEENT: Slightly pale conjunctivae. Anicteric sclerae. NECK: No mass. No carotid bruits. No JVD. CHEST: No deformities. LUNGS: Clear breath sounds. HEART: Normal sinus rhythm. No murmurs, gallops, or rubs. ABDOMEN: Globular, soft, nontender. No masses. Positive for PD catheter. EXTREMITIES: No edema. No deformities. MEDICATIONS: Medications of August 27, 2020, reviewed. LABORATORY DATA: Laboratories of August 26, 2020; white count 10.3, hemoglobin 7.9. August 27, 2020; glucose 182. August 26, 2020; potassium 5.5, BUN 88, creatinine 15.75. ASSESSMENT AND PLAN: 1. Status post gastrointestinal bleed-stable. P.r.n. blood transfusion. Resume Epogen regimen. The patient is status post upper GI endoscopy. 2. Anemia-secondary to gastrointestinal bleed and chronic renal failure-Epogen is being maintained. 3. End-stage renal disease, stable. Continue current CCPD regimen. No changes will be made with the peritoneal dialysis regimen. Ultrafiltration is being tolerated. We will recheck CBC and basic metabolic panel in a.m. Job ID: [id number]
[2020-08-27] MEDS ORDERED: Insulin Glargine 20 UNITS in Pre-Filled Syringe 1 EACH SC SCH (09:00)
[2020-08-27] MEDS ORDERED: Amlodipine 10 MG TAB PO SCH (09:00)
[2020-08-27] MEDS ORDERED: Cholecalciferol (Vitamin D3) 400 UNITS TAB PO SCH (09:00)
[2020-08-27 09:31] LABS: Hemoglobin 7.1 g/dL (14.0-18.0)
[2020-08-27] MEDS ORDERED: Insulin Glargine 10 UNITS in Pre-Filled Syringe 1 EACH SC SCH ×2 (10:30→21:00)
[2020-08-27 16:03] VITALS: BP 133/75; TEMP 98.6
[2020-09-02] MEDS ORDERED: DARBEPOETIN ALFA SC SCH (09:00)
[2020-09-02] MEDS ORDERED: [UNRECOGNIZED DRUG - OTHER] SC SCH (09:00)
== END 2020-08-27 16:15 | DRG 377 ==
LOC: ERS 14:30 → 2NO 16:38
PROVIDERS: ADMIT Student in an Organized Health Care Education/Training Program; ATTEND Internal Medicine
PROC: 30233N1 Transfusion of Nonautologous Red Blood Cells into Peripheral Vein, Percutaneous Approach (ICD-10-PCS; 2020-08-25)
PROC: 3E1M39Z Irrigation of Peritoneal Cavity using Dialysate, Percutaneous Approach (ICD-10-PCS; 2020-08-25)
PROC: 0DB78ZX Excision of Stomach, Pylorus, Via Natural or Artificial Opening Endoscopic, Diagnostic (ICD-10-PCS; principal; 2020-08-26)
DX: K25.4 Chronic or unspecified gastric ulcer with hemorrhage (principal); N18.6 End stage renal disease; I69.351 Hemiplegia and hemiparesis following cerebral infarction affecting right dominant side; I12.0 Hypertensive chronic kidney disease with stage 5 chronic kidney disease or end stage renal disease; D62 Acute posthemorrhagic anemia; K26.4 Chronic or unspecified duodenal ulcer with hemorrhage; Z20.828 Contact with and (suspected) exposure to other viral communicable diseases; E78.5 Hyperlipidemia, unspecified; E11.22 Type 2 diabetes mellitus with diabetic chronic kidney disease; F17.210 Nicotine dependence, cigarettes, uncomplicated; Z79.82 Long term (current) use of aspirin; Z79.899 Other long term (current) drug therapy; Z99.2 Dependence on renal dialysis; Z79.4 Long term (current) use of insulin
CPT/HCPCS: 36415; 36416; 36430; 80053; 82274; 82728; 83540; 83550; 85014; 85018; 85025; 85610; 85730; 86850; 86900; 86901; 87635; 88305; 88312; 90945; 93005; C9113; G0257; J1815; J2704; J3490; P9016; Q5105; U0002; U0003

== ENCOUNTER 2020-11-28 08:03 | Outpatient (CLI) | payer MEDICARE ==
[2020-11-28 16:28] LABS: Hemoglobin 9.2 g/dL (14.0-18.0); Mean Corpuscular HGB CONC 30.4 G/DL (32.0-36.0); Mean Corpuscular Hemoglobin 26.4 PG (27.0-33.0); Mean Corpuscular Volume 86.8 fl (80.0-100.0); Mean Platelet Volume 10.2 fl (7.4-10.4); Platelet Count 384 10x3/uL (130-400); RBC Distribution Width 14.6 % (11.5-14.5); Red Blood Cell (RBC) Count 3.49 10x6/uL (4.40-5.80); White Blood Cell (WBC) Count 8.8 10x3/uL (4.5-11.0)
[2020-11-28 16:35] LABS: Anion Gap 16 mmol/L (10-20); BUN (Urea Nitrogen) 31 mg/dL (8.9-20.6); Calc. Creatinine Clearance 0 mL/min (70-130); Calcium 7.9 mg/dL (7.8-10.44); Carbon Dioxide 27 mmol/L (22-29); Chloride 94 mmol/L (98-107); Glucose 440 mg/dL (70-105); Potassium 4.4 mmol/L (3.5-5.1); Sodium 133 mmol/L (136-145)
[2020-11-29 02:30] LABS: SARS-CoV-2 PCR by NAA Not Detected (NotDetected)
== END 2020-11-28 08:04 | disposition home or self-care (01) ==
LOC: LABBT 08:03
PROVIDERS: ATTEND Specialist
DX: Z01.812 Encounter for preprocedural laboratory examination (principal); Z20.822 Contact with and (suspected) exposure to COVID-19; N18.6 End stage renal disease
CPT/HCPCS: 80048; 85027; U0003; U0005; 87635

== ENCOUNTER 2020-12-03 09:54 | Day surgery (SDC) | payer MEDICARE ==
[2020-12-02 10:29] VITALS: BMI 30.2
[2020-12-03] MEDS ORDERED: Acetaminophen 500 MG TAB ONE (10:35)
[2020-12-03] MEDS ORDERED: PROPOFOL 200 MG/20 ML VIAL ONE (10:51)
[2020-12-03] MEDS ORDERED: Lidocaine 1% PF 5 ML VIAL ONE (10:51)
[2020-12-03] MEDS ORDERED: XYLOCAINE 2%-EPI 1:100,000 20 ML VIAL ONE (11:51)
[2020-12-03] MEDS ORDERED: Bupivacaine 0.25% HCL 30 ML VIAL ONE (11:51)
[2020-12-03] MEDS ORDERED: Midazolam HCl 2 mg/2 ml Vial ONE (11:55)
[2020-12-03] MEDS ORDERED: Fentanyl 100 MCG/2 ML VIAL ONE (11:55)
[2020-12-03] MEDS ORDERED: hydrALAZINE 20 MG/ML VIAL ONE (13:08)
--- NOTE | 2020-12-03 13:40 | OP ---
DATE OF PROCEDURE: 12/03/2020 PREOPERATIVE DIAGNOSES: 1. End-stage renal disease. 2. Undesired peritoneal dialysis catheter. 3. Functioning arm fistula. POSTOPERATIVE DIAGNOSES: 1. End-stage renal disease. 2. Undesired peritoneal dialysis catheter. 3. Functioning arm fistula. PROCEDURE PERFORMED: Removal of PD catheter, double cuffed pigtail. ANESTHESIA: LMA, TIVA, local with 0.5% Marcaine 30 mL, mixed with 1% Xylocaine with epinephrine 20 mL. DESCRIPTION OF PROCEDURE: The patient was taken to the operating room where under intravenous sedation and LMA anesthesia, abdomen and PD catheter were prepared with ChloraPrep and draped in routine fashion. Local anesthetic was infiltrated in the skin and subcutaneous tissue about the operative site. The peritoneal dialysis catheter double cuffed pigtail dissected free from the subcutaneous tissue, removed intact. Good hemostasis noted. Gauze dressing applied. The patient tolerated the procedure well. Job ID: [id number]
[2020-12-03] MEDS ORDERED: HYDROcodone/Acetaminophen 5/325 mg Tablet ONE (14:32)
== END 2020-12-03 15:00 | disposition home or self-care (01) ==
LOC: SDC 09:54
PROVIDERS: ATTEND Specialist
PROC: 0WPG03Z Removal of Infusion Device from Peritoneal Cavity, Open Approach (ICD-10-PCS; principal; 2020-12-03)
DX: T85.898A Other specified complication of other internal prosthetic devices, implants and grafts, initial encounter (principal); I12.0 Hypertensive chronic kidney disease with stage 5 chronic kidney disease or end stage renal disease; E11.22 Type 2 diabetes mellitus with diabetic chronic kidney disease; N18.6 End stage renal disease; E78.00 Pure hypercholesterolemia, unspecified; E05.90 Thyrotoxicosis, unspecified without thyrotoxic crisis or storm; Z79.4 Long term (current) use of insulin; Z79.82 Long term (current) use of aspirin; Z79.899 Other long term (current) drug therapy; Z91.011 Allergy to milk products
CPT/HCPCS: 36416; J0360; J0690; J2250; J2704; J3010; S0020